=== PATIENT | male | born 1970 ===

== ENCOUNTER → 2017-12-11 | Outpatient (CLI) | payer OTHER ==
[~2017-12-11] MED LIST: AZIT-1 PO; CYCL10TA29 PO; LOR5/325 PO; MULT-1287 PO
--- NOTE | 2017-12-11 09:39 | RADIOLOGY IMAGING REPORT ---
[place] [facility] [place] NAME: Andre Cason : 1970 MR: [id number] V: [id number] EXAM DATE: ORDERING PHYSICIAN: FARZANA COLON TECHNOLOGIST: Location: [facility] Patient: Andre Cason : 1970 Visit/Account:[id number] Date of Sevice: 12/11/2017 Ultrasound abdomen limited: History: Generalized abdominal pain x4 days, getting worse COMPARISON STUDIES: None FINDINGS: Gallbladder: Gallbladder is normal. There is no cholelithiasis or pericholecystic fluid. Gallbladde r wall thickness is normal. No sonographic Fair sign is present. Liver: Multiple small cysts are present in the liver, the largest measuring 3 x 2.3 x 2.6 cm. This d oes have a septation. There is no solid mass or intrahepatic ductal dilatation. Portal vein is agarwal nt. Surface of the liver is smooth Common duct: normal 2 mm. Pancreas: Head of the pancreas is normal, body and tail are obscured by overlying bowel gas. Right kidney: 11.2 x 4.4 x 5.6 cm. Cortical thickness and echogenicity is normal. Upper abdominal aorta and IVC: Patent Ascites: none IMPRESSION: 1. No cholelithiasis or evidence of cholecystitis. 2. Incidental note made of multiple small liver cysts. Report Dictated By: Lisa Dyer MD at 12/11/2017 9:28 AM Report E-Signed By: Lisa Dyer MD at 12/11/2017 9:34 AM WSN:[id number]
== END ==
LOC: RAD 07:11
PROVIDERS: ATTEND Physician Assistant Medical
DX: K76.89 Other specified diseases of liver (principal)
CPT/HCPCS: 76705

== ENCOUNTER 2017-12-12 06:58 | Emergency (ER) | payer OTHER ==
--- NOTE | 2017-12-12 07:13 | ER Report ---
History and Physical Time Seen By MD: 07:12 Hx. of Stated Complaint: PT HAS BEEN SICK FOR THE PAST 5 DAYS; PT STATES THAT IT STARTED WITH A COUGH LAST SATURDAY; STATES THAT HIS RIGHT SIDE HURTS THE MOST; PT ALSO HAS SOB HPI/ROS CHIEF COMPLAINT: Right chest pain HISTORY OF PRESENT ILLNESS: This is a 47-year-old male. He's been having problems for about 5 days. He has pain in the right chest he describes a sharp and intermittent. It comes on with cough, deep breaths, movement, burping. Does not worsen with eating or drinking. He denies any fevers or chills. He does feel short of breath. He feels a crackling sensation in the right chest pain. It does radiate to his back but stays on the right side. Sinus primary care doctor yesterday and had an ultrasound of the gallbladder which was negative. Pain does not go into the abdomen. No problem with bowel or bladder function. He has no swelling in the legs. Sometimes it feels like the pain will go up to the right side of his neck. REVIEW OF SYSTEMS: Constitutional: As above. Cardiovascular: No palpitations. Respiratory: No cough. Gastrointestinal: No abdominal pain. No nausea or vomiting. Musculoskeletal: No extremity pain. Skin: No rashes. Neurological: No weakness. No headache. Allergies: Coded Allergies: No Known Drug Allergies (Unverified , 12/12/17) Home Meds Active Scripts Hydrocodone Bit/Acetaminophen (HYDROCODON-ACETAMINOPHEN 5-325) 1 Each Tablet, 1 EACH PO Q4H Y for PAIN, #12 TAB 0 Refills Prov:NICHOLAS GARVEY MD 12/12/17 Azithromycin (ZITHROMAX) 250 Mg Tablet, 0 PO QDAY, #6 TAB 0 Refills Take 2 tablets today, then one daily for 4 more days. Prov:NICHOLAS GARVEY MD 12/12/17 Reported Medications Multivitamin (MEN'S MULTI-VITAMIN) 1 Each Tablet, 1 EACH PO 12/12/17 Cyclobenzaprine Hcl (CYCLOBENZAPRINE HCL) 10 Mg Tablet, 10 MG PO TID, #9 TAB 12/12/17 Past Medical/Surgical History Hypertension, GERD, hiatal hernia, left hand fracture, right upper extremity cellulitis Reviewed Nurses Notes: Yes Hx Smoking: No Constitutional Vital Sign - Last 24 Hours 7/05/2012/12/17 12/12/17 12/12/17 07:04 07:05 07:28 07:30 Temp 98.2 Pulse 79 82 Resp 18 B/P (MAP) 157/105 (122) 139/93 (108) Pulse Ox 91 92 O2 Delivery Room Air 12/12/17 12/12/17 12/12/17 12/12/17 07:58 08:38 08:58 09:00 Pulse 76 75 B/P (MAP) 138/85 (102) 138/79 (98) Pulse Ox 91 92 12/12/17 12/12/17 09:30 09:35 Pulse 69 B/P (MAP) 136/93 (107) Pulse Ox 91 Physical Exam General Appearance: The patient is alert. No acute distress. Non-toxic in appearance. Eyes: Pupils are equal, round. No pallor, injection or icterus. ENT: Mucous membranes are moist. Normal oral mucosa. Posterior oropharynx is normal. Neck: Supple and non tender. Respiratory: Breathing easily and unlabored. Lungs are clear to auscultation. Cardiovascular: Regular rate and rhythm. No murmurs, gallops or rubs. Normal capillary refill. No edema. Gastrointestinal: Abdomen is soft and non tender. Nondistended. No masses or organomegaly. Normal active bowel sounds. No costovertebral angle tenderness with percussion. Neurological: Alert and oriented x3. No focal neurologic deficits Skin: Warm and dry. Musculoskeletal: Extremities are nontender. DIFFERENTIAL DIAGNOSIS: After history and physical exam, differential diagnosis was considered for right-sided intermittent chest pain including but not limited to myocardial ischemia, pericarditis pulmonary embolus, chest wall pain , pleural inflammation and pulmonary infectious causes. Other processes in the abdomen seem less likely given benign abdominal exam. Medical Decision Making Data Points Result Diagram: 12/12/17 0750 12/12/17 0000 Laboratory Hematology Test 12/12/17 00:00 12/12/17 07:50 12/12/17 08:50 Sodium Level 140 mmol/L (137-145) Potassium Level 4.1 mmol/L (3.5-5.0) Chloride Level 102 mmol/L (98-107) Carbon Dioxide Level 27 mmol/L (22-30) Blood Urea Nitrogen 15 mg/dl (9-21) Creatinine 0.90 mg/dl (0.66-1.25) Glomerular Filtration Rate Calc > 60.0 Random Glucose 108 mg/dl (75-110) Calcium Level 9.2 mg/dl (8.4-10.2) Total Bilirubin 0.7 mg/dl (0.2-1.3) Aspartate Amino Transf (AST/SGOT) 27 U/L (0-35) Alanine Aminotransferase (ALT/SGPT) 38 U/L (0-56) Alkaline Phosphatase 92 U/L (0-126) Troponin I < 0.012 ng/ml Total Protein 7.0 g/dl (6.3-8.2) Albumin 4.1 g/dl (3.5-5.0) Red Blood Count 5.55 M/uL (4.00-5.60) Mean Corpuscular Volume 89.7 fL (80.0-96.0) Mean Corpuscular Hemoglobin 31.4 pg (26.0-33.0) Mean Corpuscular Hemoglobin Concent 35.0 g/dL (32.0-36.0) Red Cell Distribution Width 13.4 % (11.5-14.5) Mean Platelet Volume 7.7 fL (7.2-11.1) Neutrophils (%) (Auto) 63.9 % (39.4-72.5) Lymphocytes (%) (Auto) 25.4 % (17.6-49.6) Monocytes (%) (Auto) 8.1 % (4.1-12.4) Eosinophils (%) (Auto) 1.8 % (0.4-6.7) Basophils (%) (Auto) 0.8 % (0.3-1.4) Nucleated RBC Relative Count (auto) 0.0 /100WBC Neutrophils # (Auto) 4.5 K/uL (2.0-7.4) Lymphocytes # (Auto) 1.8 K/uL (1.3-3.6) Monocytes # (Auto) 0.6 K/uL (0.3-1.0) Eosinophils # (Auto) 0.1 K/uL (0.0-0.5) Basophils # (Auto) 0.1 K/uL (0.0-0.1) Nucleated RBC Absolute Count (auto) 0.00 K/uL D-Dimer Quantitative (PE/DVT) 0.39 ug/ml (0-0.50) Chemistry Test 12/12/17 00:00 12/12/17 07:50 12/12/17 08:50 Glomerular Filtration Rate Calc > 60.0 Calcium Level 9.2 mg/dl (8.4-10.2) Total Bilirubin 0.7 mg/dl (0.2-1.3) Aspartate Amino Transf (AST/SGOT) 27 U/L (0-35) Alanine Aminotransferase (ALT/SGPT) 38 U/L (0-56) Alkaline Phosphatase 92 U/L (0-126) Troponin I < 0.012 ng/ml Total Protein 7.0 g/dl (6.3-8.2) Albumin 4.1 g/dl (3.5-5.0) White Blood Count 7.1 k/uL (4.5-11.0) Red Blood Count 5.55 M/uL (4.00-5.60) Hemoglobin 17.4 g/dL (14.0-18.0) Hematocrit 49.8 % (42.0-52.0) Mean Corpuscular Volume 89.7 fL (80.0-96.0) Mean Corpuscular Hemoglobin 31.4 pg (26.0-33.0) Mean Corpuscular Hemoglobin Concent 35.0 g/dL (32.0-36.0) Red Cell Distribution Width 13.4 % (11.5-14.5) Platelet Count 224 K/uL (150-450) Mean Platelet Volume 7.7 fL (7.2-11.1) Neutrophils (%) (Auto) 63.9 % (39.4-72.5) Lymphocytes (%) (Auto) 25.4 % (17.6-49.6) Monocytes (%) (Auto) 8.1 % (4.1-12.4) Eosinophils (%) (Auto) 1.8 % (0.4-6.7) Basophils (%) (Auto) 0.8 % (0.3-1.4) Nucleated RBC Relative Count (auto) 0.0 /100WBC Neutrophils # (Auto) 4.5 K/uL (2.0-7.4) Lymphocytes # (Auto) 1.8 K/uL (1.3-3.6) Monocytes # (Auto) 0.6 K/uL (0.3-1.0) Eosinophils # (Auto) 0.1 K/uL (0.0-0.5) Basophils # (Auto) 0.1 K/uL (0.0-0.1) Nucleated RBC Absolute Count (auto) 0.00 K/uL D-Dimer Quantitative (PE/DVT) 0.39 ug/ml (0-0.50) Coagulation Test 12/12/17 08:50 D-Dimer Quantitative (PE/DVT) 0.39 ug/ml Microbiology Microbiology Date/Time Source Procedure Growth Status 12/12/17 08:06 Blood Blood Culture - Preliminary NO GROWTH SO FAR, SET LATE. REINCUBATED Resulted 12/12/17 07:58 Blood Blood Culture - Preliminary NO GROWTH SO FAR, SET LATE. REINCUBATED Resulted EKG/Imaging Imaging Technique: CHEST PA AND LAT HISTORY: right chest pain Comparison studies: None FINDINGS: Hazy bibasilar opacities are noted. Low degree of inspiration is noted. The cardiac silhouette is unremarkable. IMPRESSION: 1. Low degree of inspiration with hazy bibasilar opacities which may represent vascular crowding due to atelectasis. Report Dictated By: Eric Zhang DO at 12/12/2017 8:39 AM ED Course/Re-evaluation Clinical Indication for ER IV: Hydration, IV Access ED Course Initial evaluation as noted above. Offered pain medication, but declined. Labs obtained and unremarkable. Chest x-ray with atelectasis, but no signs of consolidation or effusion. Cannot rule out pneumonia entirely, but appears to be pleurisy. Discussed further testing with a CT scan of the chest, versus conservative treatment with anti-inflammatories. They would like to watch for now. They are going to be leaving [facility] on vacation and asked about a prescription for antibiotics. We talked about this and the pros and cons. Went ahead and gave a 5 days prescription for Azithromycin. Decision to Disposition Date: Dec 12, 2017 Decision to Disposition Time: 09:35 Depart Departure Latest Vital Signs Vital Signs Date Time Temp Pulse Resp B/P (MAP) Pulse Ox O2 Delivery O2 Flow Rate FiO2 12/12/17 09:35 69 91 12/12/17 09:30 136/93 (107) 12/12/17 07:04 98.2 18 Room Air Impression: Primary Impression: Pleuritic chest pain Condition: Improved Disposition: HOME OR SELF-CARE New Scripts Hydrocodone Bit/Acetaminophen (HYDROCODON-ACETAMINOPHEN 5-325) 1 Each Tablet 1 EACH PO Q4H Y for PAIN, #12 TAB 0 Refills Prov: NICHOLAS GARVEY MD 12/12/17 Azithromycin (ZITHROMAX) 250 Mg Tablet 0 PO QDAY, #6 TAB 0 Refills Take 2 tablets today, then one daily for 4 more days. Prov: NICHOLAS GARVEY MD 12/12/17 Patient Instructions: Pleurisy (ED) Additional Instructions: We did not find a definitive cause of your chest pain today. We think that this is pleuritic chest pain. Labs and xrays look good other than some atelectasis in the bases of the lungs caused by not fully inflation due to pain inhibiting deep breaths. We cannot fully rule out a subtle pneumonia; what people would refer to a "walking pneumonia". Take Ibuprofen 200mg over the counter tablets, take 4 tablets every 8 hours ( three times a day) for 5 days. Take Lortab 5/325, one every 4 hours as needed for severe pain. Increase fluid intake over the next few days. Because you are going to be leaving town, we will go ahead and start the antibiotic Azithromycin 250mg, take 2 tablets today, then one tablet daily for 4 more days. Return to the ER for further or worsening pain, shortness of breath. NICHOLAS GARVEY MD Dec 12, 2017 07:13
[2017-12-12] MEDS ORDERED: NS(*) 0.9% 1000 ML BAG 1,000 ML IV ONE (07:25)
--- NOTE | 2017-12-12 07:50 | EKG ---
FACILITY: [facility] - [place] PATIENT NAME: YULIET SCOTT : [id number] MR: [id number] V: [id number] EXAM DATE: ORDERING PHYSICIAN: NICHOLAS GARVEY TECHNOLOGIST: VANE Dias Reason : CHEST PAIN Blood Pressure : / mmHG Vent. Rate : 083 BPM Atrial Rate : 083 BPM P-R Int : 154 ms QRS Dur : 088 ms QT Int : 362 ms P-R-T Axes : 033 -40 006 degrees QTc Int : 425 ms Normal sinus rhythm Left axis deviation Pulmonary disease pattern Abnormal ECG No previous ECGs available Confirmed by GARY DUMONT ([id number]) on 12/12/2017 12:27:43 PM Referred By: Confirmed By:GARY DUMONT
[2017-12-12 08:18] LABS: PLATELET COUNT, AUTOMATED 224 K/uL (150-450)
--- NOTE | 2017-12-12 08:46 | RADIOLOGY IMAGING REPORT ---
FACILITY: [facility] - [place] PATIENT NAME: Andre Cason : 1970 MR: [id number] V: [id number] EXAM DATE: ORDERING PHYSICIAN: NICHOLAS GARVEY TECHNOLOGIST: Location: [facility] - [place] Patient: Andre Cason : 1970 Visit/Account:[id number] Date of Sevice: 12/12/2017 Technique: CHEST PA AND LAT HISTORY: right chest pain Comparison studies: None FINDINGS: Hazy bibasilar opacities are noted. Low degree of inspiration is noted. The cardiac silhoue tte is unremarkable. IMPRESSION: 1. Low degree of inspiration with hazy bibasilar opacities which may represent vascular crowding due to atelectasis. Report Dictated By: Eric Zhang DO at 12/12/2017 8:39 AM Report E-Signed By: Eric Zhang DO at 12/12/2017 8:42 AM WSN:[id number]
[2017-12-12] MEDS ORDERED: MULT-1287 PO (08:47)
[2017-12-12] MEDS ORDERED: CYCL10TA29 PO (08:47)
[2017-12-12 09:30] VITALS: BP 136/93
[2017-12-12] MEDS ORDERED: LOR5/325 PO (09:36)
[2017-12-12] MEDS ORDERED: AZIT-1 PO (09:36)
== END 2017-12-12 09:54 | disposition home or self-care (01) ==
LOC: ER 07:11
DX: R07.89 Other chest pain (principal); R94.31 Abnormal electrocardiogram [ECG] [EKG]
CPT/HCPCS: 36415; 71046; 84484; 85025; 85379; 87040; 93005; 99284; J7030; 82040; 82247; 82310; 82374; 82435; 82565; 82947; 84075; 84132; 84155; 84295; 84450; 84460; 84520; 99283